=== PATIENT | male | born 1975 | race Caucasian/White ===

== ENCOUNTER 2023-03-31 13:20 | Emergency (ER) | payer MEDICAID, OTHER ==
[~2023-03-31] VITALS: Ht 180.3 cm; Wt 122.5 kg
[~2023-03-31 13:20] MED LIST: CEPH500T MT; HIBIL TP; SULF1TAB48 MT
[2023-03-31 13:32] VITALS: O2SAT 96
[2023-03-31] MEDS ORDERED: ACETAMINOPHEN 325MG TABLET PO SCH (14:08)
[2023-03-31] MEDS ORDERED: IBUPROFEN 600MG TABLET PO SCH (14:08)
[2023-03-31 15:05] VITALS: BP 141/79; PULSE 94; RESP 16; TEMP 99
[2023-03-31 15:07] LABS: BASOPHILS % 0.5 % (0.0-2.0); EOSINOPHILS % 2.3 % (0.0-5.0); HEMATOCRIT. 40.5 % (42.0-52.0); HEMOGLOBIN. 13.9 g/dL (14.0-18.0); LYMPHOCYTES % 14.2 % (20.0-50.0); MEAN CORPUSCULAR HEMOGLOBIN 31.3 pg (28.0-32.0); MEAN CORPUSCULAR HGB CONC 34.2 g/dL (31.0-37.0); MEAN CORPUSCULAR VOLUME 91.5 fL (80.0-94.0); MEAN PLATELET VOLUME 7.6 fl (7.4-10.4); MONOCYTES % 5.8 % (2.0-8.0); NEUTROPHILS % 77.2 % (40.0-76.0); PLATELET 263 x1000/uL (130-400); RED BLOOD CELL COUNT 4.42 mill/uL (4.7-6.1); RED CELL DISTRIBUTION WIDTH 13.3 % (11.6-14.6); WHITE BLOOD COUNT 9.8 x1000/uL (4.5-11.0)
[2023-03-31 15:24] LABS: ALANINE AMINOTRANSFERASE 14 IU/L (10-49); ALBUMIN 4.2 g/dL (3.2-4.8); ASPARTATE AMINOTRANSFERASE 17 IU/L (<34); BILIRUBIN TOTAL 0.3 mg/dL (0.1-1.0); CALCIUM 8.9 mg/dL (8.7-10.4); CARBON DIOXIDE 30 mEq/L (21-32); CHLORIDE 105 mEq/L (98-107); GLUCOSE 103 mg/dL (70-105); PROTEIN TOTAL 7.4 g/dL (6.0-8.3); SODIUM 140 mEq/L (136-145); UREA NITROGEN BLOOD 11 mg/dL (9-23)
[2023-03-31 16:04] LABS: ERYTHROCYTE SEDIMENTATION RATE 12 mm/hr (0-15)
[2023-03-31] MEDS ORDERED: SULF1TAB48 MT (16:05)
[2023-03-31] MEDS ORDERED: VANCOMYCIN 1G PREMIX 200 ML IV ONE (16:30)
[2023-03-31] MEDS ORDERED: CEFTRIAXONE 1GM PREMIX 50 ML IV ONE (16:30)
== END 2023-03-31 21:45 | disposition short-term general hospital (02) ==
LOC: ER 13:20
DX: L02.415 Cutaneous abscess of right lower limb (principal); F31.9 Bipolar disorder, unspecified; F20.9 Schizophrenia, unspecified
CPT/HCPCS: 76882; 80053; 85025; 85651; 36415; 73590; 93970; 96368; 96365; 99285; J0696; J3370; Z7610

== ENCOUNTER 2023-06-07 19:47 | Emergency (ER) | payer OTHER ==
[~2023-06-07] VITALS: Ht 180.3 cm; Wt 118.0 kg
[2023-06-07 20:14] VITALS: O2SAT 97
[2023-06-07 20:32] LABS: CLARITY URINE CLEAR (CLEAR); COLOR URINE DARK YELLOW (YELLOW); GLUCOSE URINE NEGATIVE (NEGATIVE); KETONES URINE 1+ (NEGATIVE); LEUKOCYTE ESTERASE URINE TRACE (NEGATIVE); NITRITE URINE NEGATIVE (NEGATIVE); OCCULT BLOOD URINE NEGATIVE (NEGATIVE); PROTEIN URINE TRACE (NEGATIVE); SPECIFIC GRAVITY URINE 1.038 (1.005-1.030)
[2023-06-07 20:46] LABS: BACTERIA URINE 1+; RBC URINE NONE SEEN /hpf (0-2); SQUAMOUS EPITHELIAL CELL URINE FEW /lpf (RARE/1+); WBC URINE 0-2 /hpf (0-2)
[2023-06-07] MEDS: ACETAMINOPHEN 325MG TABLET PO NR (22:04)
[2023-06-07 22:13] LABS: BASOPHILS % 0.6 % (0.0-2.0); EOSINOPHILS % 4.7 % (0.0-5.0); HEMATOCRIT. 43.1 % (42.0-52.0); HEMOGLOBIN. 14.7 g/dL (14.0-18.0); MEAN CORPUSCULAR HGB CONC 34.2 g/dL (31.0-37.0); MEAN CORPUSCULAR VOLUME 90.7 fL (80.0-94.0); MEAN PLATELET VOLUME 8.4 fl (7.4-10.4); MONOCYTES % 4.1 % (2.0-8.0); NEUTROPHILS % 68.6 % (40.0-76.0); PLATELET 251 x1000/uL (130-400); RED BLOOD CELL COUNT 4.75 mill/uL (4.7-6.1); RED CELL DISTRIBUTION WIDTH 13.6 % (11.6-14.6); WHITE BLOOD COUNT 8.4 x1000/uL (4.5-11.0)
[2023-06-07 22:28] LABS: ALANINE AMINOTRANSFERASE 14 IU/L (10-49); ALBUMIN 4.1 g/dL (3.2-4.8); ASPARTATE AMINOTRANSFERASE 17 IU/L (<34); BILIRUBIN TOTAL 0.3 mg/dL (0.1-1.0); CALCIUM 8.8 mg/dL (8.7-10.4); CARBON DIOXIDE 28 mEq/L (21-32); CHLORIDE 108 mEq/L (98-107); CREATININE 1.1 mg/dL (0.6-1.3); GLUCOSE 100 mg/dL (70-105); POTASSIUM 4.2 mEq/L (3.5-5.1); PROTEIN TOTAL 6.8 g/dL (6.0-8.3); SODIUM 138 mEq/L (136-145); UREA NITROGEN BLOOD 11 mg/dL (9-23)
[2023-06-07 22:29] LABS: TROPONIN I HIGH SENSITIVITY < 4 ng/L (3.0-53)
[2023-06-07] MEDS ORDERED: CEFP100T8 MT (22:46)
[2023-06-08] MEDS: IBUPROFEN 400MG TABLET PO NR (01:22)
[2023-06-08 01:24] VITALS: BP 101/74; PULSE 72; RESP 18; TEMP 98
== END 2023-06-08 01:27 | disposition home or self-care (01) ==
LOC: ER 19:55
DX: R10.9 Unspecified abdominal pain (principal); J45.909 Unspecified asthma, uncomplicated; Z86.59 Personal history of other mental and behavioral disorders
CPT/HCPCS: 36415; 71045; 74176; 80053; 81003; 83605; 84484; 85025; 99284

== ENCOUNTER 2023-08-19 20:45 | Emergency (ER) | payer OTHER ==
[~2023-08-19] VITALS: Ht 180.3 cm; Wt 118.0 kg
[~2023-08-19 20:45] MED LIST changes: +CEFP100T8 MT
[2023-08-19 21:12] VITALS: BP 131/70; PULSE 88; RESP 16; TEMP 98.6; O2SAT 98
[2023-08-19] MEDS ORDERED: DOXY100C5 MT (22:49)
[2023-08-19] MEDS ORDERED: CEPH500T MT (22:49)
== END 2023-08-19 23:10 | disposition home or self-care (01) ==
LOC: ER 20:45
DX: L03.115 Cellulitis of right lower limb (principal); F31.9 Bipolar disorder, unspecified; F20.9 Schizophrenia, unspecified
CPT/HCPCS: 99281; 99283

== ENCOUNTER 2023-09-28 10:37 | Emergency (ER) | payer OTHER ==
[~2023-09-28] VITALS: Ht 182.9 cm; Wt 117.5 kg
[~2023-09-28 10:37] MED LIST changes: +DOXY100C5 MT
[2023-09-28 10:46] VITALS: O2SAT 97
[2023-09-28] MEDS: METHOCARBAMOL 500MG TABLET PO ONE (11:40)
[2023-09-28] MEDS: KETOROLAC 15MG/ML VIAL IM ONE (11:40)
[2023-09-28] MEDS ORDERED: METH-653 MT (11:41)
[2023-09-28] MEDS ORDERED: IBUP-2028 MT (11:41)
[2023-09-28 12:15] VITALS: BP 100/67; PULSE 87; RESP 17; TEMP 98.2
== END 2023-09-28 12:14 | disposition home or self-care (01) ==
LOC: ER 10:37
DX: M54.9 Dorsalgia, unspecified (principal); F20.9 Schizophrenia, unspecified; F31.9 Bipolar disorder, unspecified; F19.90 Other psychoactive substance use, unspecified, uncomplicated
CPT/HCPCS: 99283; 96372; J1885